=== PATIENT | male | born 2000 | race Hispanic/Latino ===

== ENCOUNTER 2025-07-09 22:37 | Emergency (ER) | payer OTHER ==
[~2025-07-09] VITALS: Ht 182.9 cm; Wt 77.1 kg
[2025-07-09 23:31] LABS: AMPHETAMINES SCREEN,URINE NEGATIVE (NEGATIVE); BASOPHILS % 0.8 % (0.0-1.0); CANNABINOIDS SCREEN,URINE NEGATIVE (NEGATIVE); COCAINE SCREEN,URINE NEGATIVE (NEGATIVE); EOSINOPHILS % 1.3 % (0.0-6.0); LYMPHOCYTES % 31.6 % (18.0-39.1); METHADONE SCREEN, URINE NEGATIVE (NEGATIVE); MONOCYTES % 7.2 % (4.4-11.3); NEUTROPHILS % 58.8 % (38.7-80.0); OPIATES SCREEN,URINE NEGATIVE (NEGATIVE); RED CELL DISTRIBUTION WIDTH 12.0 % (11.7-14.4)
[2025-07-09 23:53] LABS: EST GLOMERULAR FILTRATION RATE 116.0 ML/MIN (>=60)
[2025-07-09 23:58] LABS: ETHANOL < 10.0 mg/dL (0.0-10.0)
[2025-07-10 02:53] VITALS: PULSE 94; RESP 16; TEMP 98.7
[2025-07-10 02:58] VITALS: BP 131/78; RESP 20; O2SAT 100
== END 2025-07-10 03:01 | disposition home or self-care (01) ==
LOC: ER 23:10
DX: F32.A Depression, unspecified (principal)
CPT/HCPCS: 36415; 80053; 80307; 80320; 80329; 85025; 99283